=== PATIENT | female | born 1960 | race Caucasian/White ===

== ENCOUNTER → 2024-09-18 14:06 | Outpatient (BNVA) | payer MEDICAID, SELFPAY | PROVIDERS: Visit Provider Orthopaedic Surgery | DX: M54.50 Low back pain, unspecified (principal) | CPT/HCPCS: 36415; 72110; 80053; 81001; 85025 ==

== ENCOUNTER 2024-10-10 18:32 | Observation (INO) | payer MEDICAID, SELFPAY ==
[2024-10-10] VITALS (20 sets, daily range): BP systolic 111–156; BP diastolic 62–91; PULSE 78–119; RESP 10–35; TEMP 36.2–36.7; O2SAT 90–100; BMI 26.2
--- NOTE | 2024-10-10 | XR_ITS ---
WS: [id number] XR lumbar spine 2-3V* [id number] REASON FOR EXAM: FAISAL IMAGES FINDINGS: Posterior decompression with pedicle screws and interconnecting rods and interbody fusion device L4-L5. Surgical appliances are intact and in proper position and alignment. XR/XR lumbar spine 2-3V* [id number] IMPRESSION: Posterior lumbar fusion without abnormality.
[2024-10-10] MEDS: sodium chloride 0.9% 1,000 ML 30 ML IV (11:28)
--- NOTE | 2024-10-10 12:05 | ANES.PREANE2 ---
Pre-Anesthetic Assessment Height/Weight: Height 5 ft 2 in Weight 143 lb Temp Pulse Resp BP Pulse Ox O2 Del Method 97.6 F 78 16 156/91 96 Room Air 10/10/24 11:10 10/10/24 11:10 10/10/24 11:10 10/10/24 11:10 10/10/24 11:10 10/10/24 11:10 Preop Diagnosis: L4-5 spinal listhesis with lumbar stenosis and neurogenic claudication Operation Date: 10/10/24 12:40 Proposed Procedures p Spinal Fusion PSF(Not Applicable) - Odell Huertas DO s Posterior Lumbar Interbody Fusion PLIF(Not Applicable) - Odell Huertas DO Was Beta Mushtaq taken within 24 hours: N/A Was Clonidine taken within 24 hours: N/A Last intake: Intake Last Liquid Date 10/09/24 Last Liquid Time 21:30 Last Solid Date 10/09/24 Last Solid Time 21:30 Social No alcohol and No tobacco Exam alert, oriented x 3, clear to auscultation bilaterally and regular rate & rhythm Airway Submandibular: within normal limits Cervical ROM: within normal limits Mallampati: Class II Comments: Comments: Extremely poor dentition, most teeth are decaying/black. Denies any loose teeth Anesthetic Plan ASA status: 2 Anesthesia: General Other: Patient states that she almost and anesthesia a couple times because they gave her too much medication. States that she became blue in recovery. NPO since yesterday Labs 09/18/2024 reviewed and acceptable for procedure Patient denies any cardiac or pulmonary issues Patient does take chronic pain meds at baseline Plan for GETA Medications/Allergies Home Medications ?Medication ?Instructions ?Recorded ?Confirmed ?Last Taken ?Type gabapentin 300 mg capsule 300 mg PO TID 09/18/24 10/10/24 10/09/24 21:00 History hydrocodone 5 mg-acetaminophen 325 1 tab PO Q4H PRN Pain, Severe 09/18/24 10/10/24 10/09/24 21:00 History mg tablet Allergies Allergy/AdvReac Type Severity Reaction Status Date / Time diphenhydramine (From Allergy Intermediate ALGY-Difficulty Verified 10/10/24 11:10 Benadryl) Breathing shell fish Allergy Unknown Uncoded 10/10/24 11:10 Current Medications Generic Name Dose Route Start Last Admin Trade Name Freq PRN Reason Stop Dose Admin Sodium Chloride 1,000 mls @ 30 mls/hr 10/10/24 11:00 10/10/24 11:28 Sodium Chloride 0.9% IV 10/11/24 10:59 30 mls/hr .Q24H MITALI Administration PFSH Anesthesia Social History Smoking and tobacco/nicotine status: never used tobacco/nicotine Data Anesthesia Cardiac Studies: No Data to Display
--- NOTE | 2024-10-10 13:41 | W.PM.OPSUD ---
Surgery/Procedure H&P Update DATE OF PROCEDURE: October 10, 2024 DATE H&P PERFORMED: 09/28/24 H&P UPDATE INFORMATION: I have reviewed H&P completed within last 30 days, I have examined patient prior to procedure and No changes to prior documentation PREOP DIAGNOSIS: L4-5 spinal listhesis with lumbar stenosis and neurogenic claudication PLANNED PROCEDURE: Operation Date: 10/10/24 12:40 Proposed Procedures p Spinal Fusion PSF(Not Applicable) - Odell Huertas DO s Posterior Lumbar Interbody Fusion PLIF(Not Applicable) - Odell Huertas DO
[2024-10-10] MEDS: ceFAZolin 2,000 mg SDV 2000 MG IVP ×2 (14:02→20:24)
[2024-10-10] MEDS: heparin, porcine 1,000 unit/mL INJ 10 mL 6000 UNIT IRRIGATION (15:03)
[2024-10-10] MEDS: VANCOMYCIN ADD-Vantage 1,000 MG VIAL 1000 MG XX (15:03)
[2024-10-10] MEDS: lidocaine-epi 1% 20 mL INJ 10 ML INJECTION (15:04)
[2024-10-10] MEDS: fentaNYL 50 mcg/mL INJ 2mL IVP ×2 (17:20→17:26)
[2024-10-10] MEDS: acetaminophen 1,000 MG/100 ML PIGGYBACK 400 MG IV (17:33)
--- NOTE | 2024-10-10 17:34 | PM.OP ---
Operative Report Date of procedure: October 10, 2024 Pre-op diagnosis: L4-5 spondylolisthesis with lumbar stenosis and neurogenic claudication Post-op diagnosis: same Procedure done: 1. L4/5 Interbody fusion with posterolateral fusion 2. Instrumentation L4-L5 3. Insertion of Cage at L4/5 4. L4-5 laminectomy with facetectomies 5. use of autograft from same incision 6. allograft 7. Bone marrow aspirate from right iliac crest 8. Use of computer navigation/stereotactic for the spine Surgeon: Odell Huertas DO Estimated blood loss (mL): 400 Procedure: 1. L4/5 Interbody fusion with posterolateral fusion 2. Instrumentation L4-L5 3. Insertion of Cage at L4/5 4. L4-5 laminectomy with facetectomies 5. use of autograft from same incision 6. allograft 7. Bone marrow aspirate from right iliac crest 8. Use of computer navigation/stereotactic for the spine Patient is brought to the operative suite. After undergoing anesthesia, the patient had neuro monitoring attached. Patient was then placed in the prone position on the Erasmo table. All areas of impingement were well-padded. Patient was then prepped and draped in the normal sterile fashion. Skin incision was then made over the L4-L5 disc space. Subperiosteal dissection was made out to the transverse processes of L4 and L5. Next attention was brought to the Striiv bone marrow aspirate kit was used to aspirate bone marrow aspirate. This was done by using the sharp probe to open up the bone. Aspiration was performed and then the blunt probe was then used to dissect down to through the bone tunnel. An aspirating well drawn back a millimeter approximately 20 cc of bone marrow aspirate was used. Admixed with the allograft and autograft bone that will be used. Next attention was brought to placing the computer navigation fiducial. The pins were placed in the right iliac crest. These pins were later removed at the end of the case. The fiducial was then attached to this. The C-arm was then brought in and spun around the patient. The information of the C-arm was then loaded the computer and this was later used for the placement of the pedicle screws. Next attention was brought to placing the pedicle screws. The technique for placing the pedicle screws was to use a drill followed by the gearshift probe. Followed by the ball probe to feel the superior inferior medial lateral [place] of the pedicles. Then placement of the screws. Was done at each pedicle. Screws were placed at L4 bilaterally and L5. Next attention was brought to performing the laminectomy ofL4. This was done using the high-speed bur Kerrisons and curettes. Once the lamina was removed and then attention was brought to performing a partial facetectomy on the contralateral side. This was done again using the high-speed bur curettes and Kerrisons. The ligamentum flavum was taken down bilaterally from L4 to L5. Attention was then brought to the facet on the ipsilateral side. The facet was taken down. The L5 nerve was decompressed as it passed around the L5 pedicle. The laminectomy was done for purposes of decompressing the nerve as well as placement of the cage. The L4 nerve was identified as it traversed through the L4 foramen. The thecal sac was identified and retracted. The L4/5 disc base was identified. Using a knife the disc base was opened. And then sequential joni were placed. The first shaver was a 6 and the last shaver was a 7. Using a pituitary and down going curette the endplates were scraped and disc material was removed from the space. Once adequate decompression of the disc base was felt to be had. Osteoamp sponge was packed into the anterior aspect of the disc base. Then a size 8 cage from [place] was placed after packing osteoamp into the cage. While placing the cage the thecal sac and L5 nerve was protected. C arm was used to ensure that the cages placed in the appropriate position. Attention was then brought to attaching the rods to the screws placed in the L4 bilaterally and L5 bilaterally. Caps were torqued into position. Locking the construct in place. Wound was copiously irrigated and then attention was brought to decorticating the facets and transverse processes laterally. Bone that was taken down from the lamina was used along with osteoamp fibers and sponges were packed into the lateral gutters along the facet joints. This was done bilaterally. Wound was then closed in a layered fashion starting with the thoracolumbar fascia. 0-vicryl was used the sub cutaneous tissue was closed with 2-0 vicryl and skin with 4-0 monocryl. Glue was then used to seal the skin and a steril dressing was applied. Patient was then placed in the supine position. The endotracheal tube was removed and patient was transferred to the PACU in stable condition.
--- NOTE | 2024-10-10 18:55 | ANE.PACU2 ---
Inpatient post-anesthesia follow up: Airway intact: Yes Vital signs: Temperature 98 F Pulse Rate 76 Respiratory Rate 20 Blood Pressure 127/72 Pulse Oximetry 97 Oxygen Delivery Me thod Room Air Oxygen Flow Rate 2 Fraction of Inspir ed Oxygen Hydration adequate: Yes Nausea and vomiting: No Pain level: 2 Mental status: Baseline
[2024-10-10] MEDS: ketorolac 30 mg/mL INJ IVP (20:23)
[2024-10-10] MEDS: gabapentin 300 mg Capsule PO (20:24)
[2024-10-10] MEDS: morphine 4 mg/mL SDV 1 mL 2 MG IVP ×2 (21:04→23:52)
[2024-10-10] MEDS: HYDROcodone-acetaminophen 10-325 mg Tablet PO (21:50)
[2024-10-11] VITALS: BP 122/69; PULSE 111; RESP 18; TEMP 36.6; O2SAT 96
[2024-10-11 01:20] VITALS: RESP 18
[2024-10-11] MEDS: morphine 4 mg/mL SDV 1 mL 2 MG IVP (01:20)
[2024-10-11] MEDS: lactated ringers 1,000 ML 90 ML IV (01:21)
[2024-10-11 04:00] VITALS: BP 110/70; PULSE 91; RESP 16; TEMP 37.1; O2SAT 92
[2024-10-11] MEDS: ketorolac 30 mg/mL INJ IVP (05:27)
[2024-10-11] MEDS: ceFAZolin 2,000 mg SDV 2000 MG IVP (05:27)
[2024-10-11 07:37] VITALS: BP 105/64; PULSE 90; RESP 18; TEMP 36.7; O2SAT 95
[2024-10-11] MEDS: docusate sodium 100 mg Capsule PO ×2 (07:43→17:24)
[2024-10-11] MEDS: gabapentin 300 mg Capsule PO ×2 (07:43→17:24)
[2024-10-11] MEDS: HYDROcodone-acetaminophen 10-325 mg Tablet PO ×2 (07:51→17:23)
--- NOTE | 2024-10-11 10:26 | PC.CHAP ---
Pastoral Care Encounter/Spiritual Assessment Type of Contact [] Declined database specialist visit [] Patient/Family/Request visit [] Outpatient visit [] Follow-up visit [] Physician referral [] Code/Alert [x] Routine visit [] Staff referral [] Actively dying [] Patient sleeping [] Family support [] [] Out of room [] Palliative care [] [] Receiving care in room [] Pre-surgical visit [] Trauma [] Long length of stay [] ICU visit [] Other: Relational/Emotional Strength [x] Patient feels connected with others/family/visitors/staff [] Distress [] Loneliness/isolation [] Abandonment Spirituality of Patient [x] Person of [place]ric[place] [] Attends Catholic of their [place] [x] Believes in Prayer [] Reads Bible or Druze materials [] There are Spiritual issues to be addressed [employer] Interventions [x] Prayer [x] Active listening [] Non-anxious presence [x] Spiritual/emotional support [] Crisis/trauma care [] Spiritual counseling [] Bereavement support [] Provided bereavement packet [] Provided Bible/devotional materials [] Provided toy/stuffed animal, coloring book to patient or family member [] Provided Communion [] Anointing/[place] [] Salvation [x] Completed spiritual assessment [] Other: Impact on Illness or Injury [] Angry [] Fearful [] Anxious [] Often cries [] Exhaustion [] Unable to work [] Unable to attend adventism [] Unable to walk/stand [] Unable to read [] Unable to drive [] Unable to eat/drink [] Unable to sleep [] Unable to be with family [] Patient intubated [] Other: Summary Time spent with patient 5 min
[2024-10-11 11:31] VITALS: BP 127/72; PULSE 76; RESP 20; TEMP 36.6; O2SAT 97
--- NOTE | 2024-10-11 12:25 | PC.NURSE ---
Hemovac Drain removed from patients right lower back. Applied 2x2 and covederm. Replaced saturated dressing.
--- NOTE | 2024-10-11 13:31 | PM.DCS ---
Discharge Providers Date of Admission: 10/10/24 18:32 Date of Discharge: October 11, 2024 Attending Provider at Admission: Odell Huertas DO Attending Provider at Discharge: Odell Huertas DO Reason for Visit Reason for Visit: M43.16 Physical Exam Narrative: Patient doing well up ambulating when I walked in. Urinary Catheter Management: Blue: Cath Placed During This Visit: yes, but has since been removed by the nurse Reason for Continuing Indwelling Catheter: Decision to DC Catheter Urinary Catheter Date of Insertion: 10/10/24 Urinary Catheter Time of Insertion: 14:30 Date Urinary Catheter Removed: 10/11/24 Time Urinary Catheter Discontinued: 06:20 Discharge Data Studies Completed and Pending Completed Studies During Hospitalization Category Date Time Status XR lumbar spine 2-3V* [id number] Routine Exams 10/10/24 00:00 Completed Radiology Impressions Lumbar Spine X-Ray 10/10/24 00:00 IMPRESSION: Posterior lumbar fusion without abnormality. Laboratory Results Blood Type O Positive 10/10/24 11:18 Rho(D) Type Rh positive 10/10/24 11:18 Antibody Screen Negative 10/10/24 11:18 Vitals Last Vital Signs Temp 98 F 10/11/24 11:31 Pulse 76 10/11/24 11:31 Resp 20 H 10/11/24 11:31 BP 127/72 10/11/24 11:31 Pulse Ox 97 10/11/24 11:31 O2 Del Method Room Air 10/11/24 07:37 O2 Flow Rate 2 10/11/24 08:00 Discharge Plan Discharge Patient Disposition: Home Condition: Stable Prescriptions: New hydrocodone-acetaminophen 10-325 mg tablet 1 tab PO Q4H PRN (Reason: pain) 7 Days Qty: 42 0RF Continued gabapentin 300 mg capsule 300 mg PO TID Discontinued hydrocodone-acetaminophen 5-325 mg tablet 1 tab PO Q4H PRN (Reason: Pain, Severe) Referrals: Odell Huertas DO [Physician] - 10/23/24 2:15 pm Discharge Diet: Advance as tolerated Discharge Activity: Limit activity as instructed Patient Instructions: Acute Wound Care (DC), Opioid Safety, Post Anesthesia Care Activity Restrictions/Additional Instructions: Thank you for [facility] for your care! The following is a list of instructions, from your provider, to follow upon your discharge to ensure you have the optimal recovery from your recent injury orsurgery. Follow-up care is a soto part of your treatment and safety. Be sure to make and go to all appointments, and call your doctor if you are having problems. If you do not already have a follow-up appointment made, call Dr. Huertas office in the next 1-3 days to make follow up appointment for 1 weeks at [phone]. It is also a good idea to know your test results and keep a list of the medicines you take. Medications will be prescribed for you at your provider's discretion. These medications are to be used as instructed; if they are taken more often that prescribed they will not be refilled early and in most cases will not be refilled at all. > When a refill is needed,you should contact [facility] 2-3 business days before your prescription runs out. Medications will NOT be refilled by [facility] providers after hours! > Many pain medications contain Tylenol (Acetaminophen). Do not consume more than 4,000 mg of Tylenol per day in total with any combination ofmedications. > Pain medications can cause constipation. Please use an over the counter stool softener as directed, while taking pain medications. Consulty our local pharmacist with questions or recommendations on stool softeners. If constipation persists, contact our office or your primary care provider. > While under our care,you are not to receive pain medications or other controlled substances from any other provider unless our office is notified and approves. Any attempts to do so will result in refusal to prescribe any further pain medications and possible dismissal from our practice. ? Follow-up in 1 week we will change dressing clinic ? Showering is permitted, however we ask that you do not take a bath, sit in a whirlpool / Jacuzzi, or go swimming for 1 month. For only the first 2 days after surgery, lt wilt be necessary for you to cover your wound/dressing with plastic and tape to keep it dry. ? Walking is essential for the healing process after surgery. We would like you to slowly advance your walking. This should be done on relatively flat clear ground (inside or out) or can be done on a treadmill. Remember this goal does not have to happen all at once, slowly increase your distance and duration. This can be broken into more more than one walk per day as tolerated. Patients who walk as directed after surgery rarely require Physical Therapy. In the unlikely event this issue arises your provider will direct hospital staff to make the appropriate arrangements. ? No lifting over 5 pounds {a gallon of milk) or bending/twisting until further notice. Each of these activities places an unnecessary amount of stress onto the body and can impede the delicate healing process. > Instead of bending at the waist, keep your back straight and bend at the knees. > Instead of twisting your torso, keep your back straight and turn your entire body with your feet. ? You may sleep in any position which makes you comfortable. Many patients find comfort sleeping in a reclining chair. It is not abnormal to have difficulty sleeping for the first several weeks following your surgery. We recommend trying Benadry! or Tylenol PM as directed to help with your sleeping difficulties. Both medications are over the counter and available withoutprescription. ? NO SMOKING!!! Smoking dramatically increases the probability of developing postoperative wound infections. ? Common complaints after lumbar and/or thoracic spine surgery include, but are not limited to: numbness and/or tingling in the legs, pain around the incision and surrounding tissues, muscle spasms, or stiffness of the middle to low back. Contact our office if these symptoms persist or if an acute change occurs. ? No driving for the first 3-5days, and not while taking narcotics [] until seen at your follow-up appointment and cleared. There are no restrictions for riding on short trips, however if you take a longer trip, arrangements should be made to make regular stops to get out of the vehicle and stretch . ? Swelling is an unfortunate event that will take place with any surgery and is the primary source of your postoperative discomfort. While walking and regular approved activities helps control inflammation, there are additional steps you can take to minimizeswelling. > Place ice over the surgical site and surrounding tissue for twenty minutes, followed by applying a low/medium heat (heating pad) for an additional twenty minutes every 1-2 hours as needed for painrelief. > You may use of over the counter anti-inflammatory medications (Ibuprofen, Motrin, Aleve, Advil, etc) as directed on the package label. These types of medicines wm significantly reduce the amount of discomfort you experience after surgery from swelling. It should be noted that if you have and allergy to any of these medications, or a history of ulcers or kidney disease you should consult you primary care provider prior to starting these medications. Discharge Attestations Time Spent in Discharge Care*: less than 30 min Quality Metrics Clinical Quality Measures [ No reported AMI, CVA or VTE this stay] Coding Level of Care Code Acute Code for Chg Brad
[2024-10-11 19:22] VITALS: BP 127/72; PULSE 76; RESP 20; TEMP 36.7; O2SAT 97
== END 2024-10-11 19:23 | disposition home or self-care (01) ==
LOC: MEDSURG 18:33
PROVIDERS: Admitting Provider Orthopaedic Surgery; Visit Provider Orthopaedic Surgery
PROC: (CPT 22633; principal; 2024-10-10 12:20)
PROC: (CPT 22612; 2024-10-10 12:20)
DX: M43.16 Spondylolisthesis, lumbar region (principal); M48.062 Spinal stenosis, lumbar region with neurogenic claudication; Z79.899 Other long term (current) drug therapy; Z88.8 Allergy status to other drugs, medicaments and biological substances; Z91.013 Allergy to seafood
CPT/HCPCS: 22633; 22853; 20939; 20930; 20936; 36415; 51702; 72100; 76000; 86850; 86900; 97116; 97161; C1713; G0378; J0131; J0690; J1100; J1644; J1885; J2270; J2405; J2704; J3010; J3370; J3490; J7030; J7120

== ENCOUNTER 2024-10-15 22:51 | Emergency (ER) | payer MEDICAID, SELFPAY ==
[2024-10-15 22:59] VITALS: BP 133/80; PULSE 88; RESP 22; TEMP 36.9; O2SAT 100; BMI 26.9
--- NOTE | 2024-10-15 23:18 | XRR_ITS ---
PROCEDURE INFORMATION: Exam: XR Chest Exam date and time: 10/15/2024 11:58 PM Age: 64 years old Clinical indication: Cough and fever and tachypnea; Additional info: Fever tachypnea TECHNIQUE: Imaging protocol: Radiologic exam of the chest. Views: 1 view. COMPARISON: No relevant prior studies available. FINDINGS: Lungs: Unremarkable. No consolidation. Pleural spaces: Unremarkable. No pleural effusion. No pneumothorax. Heart/Mediastinum: Unremarkable. No cardiomegaly. Bones/joints: Unremarkable. XR/XR chest 1V portable [id number] IMPRESSION: No acute findings.
--- NOTE | 2024-10-15 23:20 | ED_ITS ---
HPI - Back Pain/Injury 2 General: Chief Complaint: Back Pain/Injury Stated Complaint: Post Surgery-Hallucination pain Time Seen by Provider: 10/15/24 23:11 History of Present Illness: Patient presents to the ER with complaints of back pain. She rates it a 10 out of 10. Patient had lumbar fusion done by Dr. Huertas on Tuesday. She was doing good for couple days taking the pain medicine as directed. Then the last couple days pain is increased and not responded to the medicine. They said today earlier she had a temperature of 100.9. Related Data Home Medications ?Medication ?Instructions ?Recorded ?Confirmed gabapentin 300 mg capsule 300 mg PO TID 09/18/2410/10 Previous Rx's ?Medication ?Instructions ?Recorded hydrocodone 10 mg-acetaminophen 1 tab PO Q4H PRN pain 7 days #42 10/11/24 325 mg tablet tabs oxycodone-acetaminophen 5 mg-325 1 tab PO Q6H PRN pain , severe #14 10/16/24 mg tablet (Percocet) tabs Allergies Allergy/AdvReac Type Severity Reaction Status Date / Time diphenhydramine (From Allergy Intermediate ALGY-Difficulty Verified 10/10/24 11:10 Benadryl) Breathing shell fish Allergy Unknown Uncoded 10/10/24 11:10 Review of Systems 2 General: Reports: 10 or more systems reviewed and unremarkable except in HPI and below PFSH ED 2 PFSH: Social History Smoking and tobacco/nicotine status: never used tobacco/nicotine Physical Exam 2 Const: COMMON NORMALS: no acute distress, average body habitus, patient oriented x3, no limitations, healthy appearing, alert and well nourished HENMT: COMMON NORMALS: normocephalic, atraumatic, hearing grossly normal bilaterally, external ears normal, Normal external nose present, moist oral mucous membranes and oropharynx normal HEAD & SCALP: normocephalic and atraumatic NOSE: Normal external nose present EXTERNAL EAR: Yes external ears normal Eye: COMMON NORMALS: Equal, round and reactive pupils present, EOMs intact bilaterally, conjunctivae normal and no scleral icterus CONJUNCTIVA: Yes conjunctivae normal PUPIL: Yes Equal, round and reactive pupils present Neck/C-Spine: COMMON NORMALS: no JVD Chest: COMMONS NORMALS: normal inspection of the chest and normal palpation of entire chest wall Resp: COMMON NORMALS: normal respiratory effort, No retractions, No use of accessory muscles and clear to auscultation bilaterally AUSCULTATION: clear to auscultation bilaterally Cardio: COMMON NORMALS: no JVD, regular rate, regular rhythm, S1 normal heart sound present, S2 normal heart sound present, No clicks present (Cardio), No murmurs present (Cardio) and No rub (Cardio) RATE: regular rate RHYTHM: r egular rhythm HEART SOUNDS: S1 normal heart sound present and S2 normal heart sound present Neuro: COMMON NORMALS: patient oriented x3 SENSORIUM/ORIENTATION: Yes alert Course 2 Vital Signs: Vital signs: Vital Signs Temperature 98.4 F 10/15/24 22:59 Pulse Rate 82 10/16/24 00:30 Respiratory Rate 20 H 10/15/24 23:44 Blood Pressure 111/63 10/16/24 00:30 Pulse Oximetry 98 10/16/24 00:30 Oxygen Delivery Me thod Room Air 10/16/24 00:30 MDM - Back Pain/Injury Medical Decision Making Lab work was obtained, white count 8.6, hemoglobin 8.5, chest x-ray no acute findings, lactic acid 2.3, AST 75 ALT 45 alk phos 166, urine negative, patient was given 4 mg of morphine 4 mg of Zofran in the ER. 2 Percocet to go home and a prescription for more Percocet. She was told to call Dr. Huertas's office first thing tomorrow morning and arrange closer follow-up. Patient declined to have a COVID flu and RSV swab performed in the ER. Medical Records I reviewed the patient's medical records. Labs I reviewed the patient's lab results. 10/15/24 23:36 10/15/24 23:36 Radiology Impressions Chest X-Ray 10/15/24 23:18 IMPRESSION: No acute findings. Laboratory Results WBC 8.62 10^3/uL (3.29-11.43) 10/15/24 23:36 RBC 2.83 10^6/uL (3.85-5.65) L 10/15/24 23:36 Hgb 8.50 g/dL (11.27-16.99) L 10/15/24 23:36 Hct 26.5 % (36-47) L 10/15/24 23:36 MCV 93.6 fl (85-98) 10/15/24 23:36 MCH 30.0 pg (27-33) 10/15/24 23:36 MCHC 32.1 g/dL (30-55) 10/15/24 23:36 RDW 12.2 % (12.1-15.1) 10/15/24 23:36 Plt Count 304 10^3/cmm (157-399) 10/15/24 23:36 MPV 9.4 fL (7.4-10.4) 10/15/24 23:36 Neut % (Auto) 67.8 % 10/15/24 23:36 Lymph % (Auto) 18.8 % 10/15/24 23:36 [place] % (Auto) 8.2 % 10/15/24 23:36 Eos % (Auto) 3.7 % 10/15/24 23:36 Baso % (Auto) 0.3 % 10/15/24 23:36 Neut # (Auto) 5.84 10^3/uL (1.8-7.7) 10/15/24 23:36 Lymph # (Auto) 1.6 10^3/uL (0.8-4.8) 10/15/24 23:36 [place] # (Auto) 0.7 10^3/uL (0.2-0.9) 10/15/24 23:36 Eos # (Auto) 0.3 10^3/uL (0.0-0.8) 10/15/24 23:36 Baso # (Auto) 0.0 10^3/uL (0.0-0.1) 10/15/24 23:36 Nucleated RBC % (auto) 0.2 % 10/15/24 23:36 Nucleated RBCs # 0.0 /100WBC 10/15/24 23:36 Sodium 137 mmol/L (136-145) 10/15/24 23:36 Potassium 3.9 mmol/L (3.5-5.1) 10/15/24 23:36 Chloride 99 mmol/L (98-107) 10/15/24 23:36 Carbon Dioxide 24 mmol/L (22-29) 10/15/24 23:36 Anion Gap 17.9 (5-19) 10/15/24 23:36 BUN 11 mg/dL (8-23) 10/15/24 23:36 Creatinine 0.9 mg/dL (0.5-0.9) 10/15/24 23:36 GFR Calculation 63.2 mL/min (90-130) L 10/15/24 23:36 Glucose 135 mg/dL (65-115) H 10/15/24 23:36 Calculated Osmolality 285 mOsm/kg (285-295) 10/15/24 23:36 Lactic Acid 2.3 mmol/L (0.5-2.2) H 10/15/24 23:36 Calcium 9.1 mg/dL (8.5-10.5) 10/15/24 23:36 Total Bilirubin 0.5 mg/dL (0.15-1.2) 10/15/24 23:36 AST 75 U/L (0-32) H 10/15/24 23:36 ALT 45 U/L (0-33) H 10/15/24 23:36 Alkaline Phosphatase 166 U/L (35-105) H 10/15/24 23:36 Total Protein 6.1 g/dL (6.6-8.7) L 10/15/24 23:36 Albumin 3.5 g/dL (3.5-5.2) 10/15/24 23:36 Globulin 2.6 g/dL (1.3-4.6) 10/15/24 23:36 Procalcitonin 0.11 ng/mL (0-0.5) 10/15/24 23:36 Urine Color Yellow (Yellow) 10/16/24 00:05 Urine Appearance Cloudy (CLEAR) A 10/16/24 00:05 Urine pH 8.0 (5-7) A 10/16/24 00:05 Ur Specific [place] 1.014 (1.005-1.030) 10/16/24 00:05 Urine Protein Negative (Negative) 10/16/24 00:05 Urine Glucose (UA) Negative (Normal) 10/16/24 00:05 Urine Ketones Negative (Negative) 10/16/24 00:05 Urine Blood Negative (Negative) 10/16/24 00:05 Urine Nitrate Negative (Negative) 10/16/24 00:05 Urine Bilirubin Negative (Negative) 10/16/24 00:05 Urine Urobilinogen 1.0 mg/dL (Negative) 10/16/24 00:05 Ur Leukocyte Esterase Negative (Negative) 10/16/24 00:05 Urine RBC 0-2 /hpf (0-2) 10/16/24 00:05 Urine WBC 0-5 /hpf (0-5) 10/16/24 00:05 Ur Squamous Epith Cells 0-5 /hpf (0-5) 10/16/24 00:05 Amorphous Sediment Not Reportable 10/16/24 00:05 Urine Bacteria None seen /hpf (NONE) 10/16/24 00:05 Hyaline Casts 1.21 /lpf 10/16/24 00:05 All radiology interpretation(s) finalized by discharge Discharge Plan Discharge Patient Disposition: Home Clinical Impression: Lumbar back pain, Anemia Condition: Stable Prescriptions: New oxycodone-acetaminophen [Percocet] 5-325 mg tablet 1 tab PO Q6H PRN (Reason: pain, severe) Qty: 14 0RF No Action gabapentin 300 mg capsule 300 mg PO TID hydrocodone-acetaminophen 10-325 mg tablet 1 tab PO Q4H PRN (Reason: pain) 7 Days Qty: 42 0RF Discharge Orders: Discharge ED (Routine); Ordered 10/16/24 Ordered By: Rafael Benites Patient Instructions: Opioid Safety, Pain Management, Anemia Activity Restrictions/Additional Instructions: Your lab work today in the ER showed you are anemic. This may be due from surgery or he may be losing blood. You have been prescribed Percocet to take for pain. Please pick them up at the pharmacy and take them as directed. Please call Dr. Huertas's office first thing in the morning to arrange closer follow-up. You declined to have the COVID flu and RSV swab performed in the ER so we cannot tell you if you have these or not. If you still keep having pain or concerns please follow-up with your family practice doctor within the next 7 days for further evaluation and treatment. Print Language: Tamazight Coding Level of Care Code ED Pumper Gager Apprentice for Ricki Salinas
[2024-10-15 23:29] VITALS: BP 138/68; PULSE 94; O2SAT 98
[2024-10-15 23:34] VITALS: PULSE 95; O2SAT 98
[2024-10-15 23:44] VITALS: RESP 20; O2SAT 100
[2024-10-15 23:44] LABS: Basophils % 0.3 %; Eosinophils # 0.3 10^3/uL (0.0-0.8); Eosinophils % 3.7 %; Hematocrit 26.5 % (36-47); Lymphocytes # 1.6 10^3/uL (0.8-4.8); Lymphocytes % 18.8 %; Mean Corpuscular HGB Conc 32.1 g/dL (30-55); Mean Corpuscular Volume 93.6 fl (85-98); Mean Platelet Volume 9.4 fL (7.4-10.4); Monocytes # 0.7 10^3/uL (0.2-0.9); Monocytes % 8.2 %; Neutrophils # 5.84 10^3/uL (1.8-7.7); Neutrophils % 67.8 %; Nucleated Red Blood Cells % 0.2 %; Platelet Count 304 10^3/cmm (157-399); Red Blood Count 2.83 10^6/uL (3.85-5.65); Red Cell Distribution Width 12.2 % (12.1-15.1); White Blood Count 8.62 10^3/uL (3.29-11.43)
[2024-10-15] MEDS: morphine 4 mg/mL SDV 1 mL IVP (23:44)
[2024-10-15] MEDS: ondansetron 2 mg/ML SDV 2 mL 4 MG IVP (23:45)
[2024-10-16 00:03] LABS: Alanine Aminotransferase 45 U/L (0-33); Albumin Level 3.5 g/dL (3.5-5.2); Alkaline Phosphatase 166 U/L (35-105); Anion Gap 17.9 (5-19); Aspartate Amino Transferase 75 U/L (0-32); Blood Urea Nitrogen 11 mg/dL (8-23); Calcium 9.1 mg/dL (8.5-10.5); Carbon Dioxide 24 mmol/L (22-29); Chloride 99 mmol/L (98-107); Creatinine Clr Calc Pharmacy 57.3003; Globulin 2.6 g/dL (1.3-4.6); Glomerular Filtration Rate 63.2 mL/min (90-130); Glucose 135 mg/dL (65-115); Osmolality Calculated 285 mOsm/kg (285-295); Potassium 3.9 mmol/L (3.5-5.1); Sodium 137 mmol/L (136-145); Total Bilirubin 0.5 mg/dL (0.15-1.2); Total Protein 6.1 g/dL (6.6-8.7)
[2024-10-16 00:04] VITALS: BP 98/78; PULSE 89; O2SAT 95
[2024-10-16 00:04] LABS: Lactic Sepsis W/Reflex 2.3 mmol/L (0.5-2.2)
[2024-10-16 00:10] LABS: Procalcitonin 0.11 ng/mL (0-0.5)
[2024-10-16 00:12] LABS: Bilirubin Urine Negative (Negative); Blood Urine Negative (Negative); Glucose Urine UA Negative (Normal); Ketones Urine Negative (Negative); Leukocyte Esterase Urine Negative (Negative); Nitrate Urine Negative (Negative); Protein Urine Negative (Negative); Specific Gravity, Urine 1.014 (1.005-1.030); Urine Appearance Cloudy (CLEAR); Urine Color Yellow (Yellow)
[2024-10-16 00:14] LABS: Add Urine Microscopic? YES; Bacteria Urine None Seen /hpf; Hyaline Casts Urine 1.21 /lpf; RBC Urine 0-2 /hpf (0-2); Squamous Epithelial Cell Urine 0-5 /hpf (0-5); WBC Urine 0-5 /hpf (0-5)
[2024-10-16 00:30] VITALS: BP 111/63; PULSE 82; O2SAT 98
[2024-10-16 01:00] VITALS: BP 104/54; PULSE 75; O2SAT 96
[2024-10-16 01:29] LABS: Reflex Lactate Order REFLEX LACTIC ORDERD
[2024-10-16 01:30] VITALS: PULSE 70; O2SAT 97
[2024-10-16] MEDS: oxyCODONE-APAP 5-325 mg Tablet PO (01:40)
[2024-10-16 01:55] VITALS: BP 104/52; PULSE 70; O2SAT 97
== END 2024-10-16 01:57 | disposition home or self-care (01) ==
PROVIDERS: Emergency Provider Emergency Medicine
DX: M54.50 Low back pain, unspecified (principal); D64.9 Anemia, unspecified
CPT/HCPCS: 36415; 71045; 80053; 81001; 83605; 84145; 85025; 96374; 96375; 99284; J2270; J2405

== ENCOUNTER 2024-10-18 22:37 | Observation (INO) | payer MEDICAID, SELFPAY ==
[2024-10-18 22:49] VITALS: BP 141/80; PULSE 77; RESP 20; TEMP 36.6; O2SAT 99; BMI 26.2
--- NOTE | 2024-10-18 22:53 | W.ED.GENADLT ---
Documented by User: Rafael Benites DO 10/19/24 05:00 HPI - General Adult General: Chief complaint: Back Pain/Injury Stated complaint: BACK PAIN Time Seen by Provider: 10/18/24 22:47 History of Present Illness: Patient brought in by EMS from [facility] as a ER to ER transfer, we were notified by Dr. Trinity Jenkins the ER, we were told patient has some postop complication such as hemorrhaging around the surgical site on imaging. Dr. Huertas has also been notified by [facility] ER as he was officially the one that acceptged the ER to ER transfe first, patient has had imaging through [facility], pt did bring the disk. We will hold the patient in the ER until Dr. Huertas sees the imaging in the morning and tells us how to proceed, currently we will control patient's pain keep the patient n.p.o. after midnight for possible surgery in the morning until told otherwise. Related Data Home Medications ?Medication ?Instructions ?Recorded ?Confirmed gabapentin 300 mg capsule 300 mg PO TID 09/18/24 10/19/24 hydrocodone 10 mg-acetaminophen 1 tab PO Q4H 10/19/24 10/19/24 325 mg tablet hydrocodone 5 mg-acetaminophen 325 0.5 - 1 tab PO .Q4-6H 10/19/24 10/19/24 mg tablet Allergies Allergy/AdvReac Type Severity Reaction Status Date / Time diphenhydramine (From Allergy Intermediate ALGY-Difficulty Verified 10/10/24 11:10 Benadryl) Breathing shell fish Allergy Unknown Uncoded 10/10/24 11:10 Review of Systems General: Reports: 10 or more systems reviewed and unremarkable except in HPI and below PFSH ED PFSH: Social History Smoking and tobacco/nicotine status: never used tobacco/nicotine Physical Exam Const: COMMON NORMALS: no acute distress, average body habitus, patient oriented x3, no limitations, healthy appearing, alert and well nourished HENMT: COMMON NORMALS: normocephalic, atraumatic, hearing grossly normal bilaterally, external ears normal, Normal external nose present, moist oral mucous membranes and oropharynx normal HEAD & SCALP: normocephalic and atraumatic NOSE: Normal external nose present EXTERNAL EAR: Yes external ears normal Neck/C-Spine: COMMON NORMALS: no JVD Chest: COMMONS NORMALS: normal inspection of the chest and normal palpation of entire chest wall Resp: COMMON NORMALS: normal respiratory effort, No retractions, No use of accessory muscles and clear to auscultation bilaterally AUSCULTATION: clear to auscultation bilaterally Cardio: COMMON NORMALS: no JVD, regular rate, regular rhythm, S1 normal heart sound present, S2 normal heart sound present, No gallops present (Cardio), No clicks present (Cardio), No murmurs present (Cardio) and No rub (Cardio) RATE: regular rate RHYTHM: regular rhythm HEART SOUNDS: S1 normal heart sound present and S2 normal heart sound present GI: COMMON NORMALS: Normal to inspection, nondistended, normoactive bowel sounds present, Soft to palpation, non-tender, No hepatosplenomegaly present and no masses PALPATION: Yes Soft to palpation and Yes No hepatosplenomegaly present Neuro: COMMON NORMALS: patient oriented x3 SENSORIUM/ORIENTATION: Yes alert Course Vital Signs: Vital signs: Vital Signs Temperature 97.7 F 10/19/24 13:15 Pulse Rate 78 10/19/24 15:54 Respiratory Rate 14 10/19/24 14:14 Blood Pressure 108/70 10/19/24 15:54 Pulse Oximetry 94 10/19/24 15:54 Oxygen Delivery Me thod Room Air 10/19/24 15:54 Oxygen Flow Rate 2 10/19/24 14:14 [facility] - General Adult Medical Records I reviewed the patient's medical records. Lab Data I reviewed the patient's lab results. 10/19/24 07:51 10/19/24 06:37 Laboratory Results WBC 6.79 10^3/uL (3.29-11.43) 10/19/24 07:51 Corrected WBC Cancelled 10/19/24 06:37 RBC 3.07 10^6/uL (3.85-5.65) L 10/19/24 07:51 Hgb 9.10 g/dL (11.27-16.99) L 10/19/24 07:51 Hct 29.0 % (36-47) L 10/19/24 07:51 MCV 94.5 fl (85-98) 10/19/24 07:51 MCH 29.6 pg (27-33) 10/19/24 07:51 MCHC 31.4 g/dL (30-55) 10/19/24 07:51 RDW 12.4 % (12.1-15.1) 10/19/24 07:51 Plt Count 389 10^3/cmm (157-399) 10/19/24 07:51 MPV 9.0 fL (7.4-10.4) 10/19/24 07:51 Gran % Cancelled 10/19/24 06:37 Neut % (Auto) 56.7 % 10/19/24 07:51 Lymph % (Auto) 21.4 % 10/19/24 07:51 [place] % (Auto) 11.2 % 10/19/24 07:51 Eos % (Auto) 6.0 % 10/19/24 07:51 Baso % (Auto) 0.6 % 10/19/24 07:51 Neut # (Auto) 3.85 10^3/uL (1.8-7.7) 10/19/24 07:51 Lymph # (Auto) 1.5 10^3/uL (0.8-4.8) 10/19/24 07:51 [place] # (Auto) 0.8 10^3/uL (0.2-0.9) 10/19/24 07:51 Eos # (Auto) 0.4 10^3/uL (0.0-0.8) 10/19/24 07:51 Baso # (Auto) 0.0 10^3/uL (0.0-0.1) 10/19/24 07:51 Absolute Gran (auto) Cancelled 10/19/24 06:37 Nucleated RBC % (auto) 0.3 % 10/19/24 07:51 Nucleated RBCs # 0.0 /100WBC 10/19/24 07:51 Sodium 136 mmol/L (136-145) 10/19/24 06:37 Potassium 4.2 mmol/L (3.5-5.1) 10/19/24 06:37 Chloride 99 mmol/L (98-107) 10/19/24 06:37 Carbon Dioxide 22 mmol/L (22-29) 10/19/24 06:37 Anion Gap 19.2 (5-19) H 10/19/24 06:37 BUN 13 mg/dL (8-23) 10/19/24 06:37 Creatinine 0.8 mg/dL (0.5-0.9) 10/19/24 06:37 GFR Calculation 72.4 mL/min (90-130) L 10/19/24 06:37 Glucose 107 mg/dL (65-115) 10/19/24 06:37 Calculated Osmolality 283 mOsm/kg (285-295) L 10/19/24 06:37 Calcium 9.4 mg/dL (8.5-10.5) 10/19/24 06:37 Total Bilirubin 0.5 mg/dL (0.15-1.2) 10/19/24 06:37 AST 31 U/L (0-32) 10/19/24 06:37 ALT 26 U/L (0-33) 10/19/24 06:37 Alkaline Phosphatase 185 U/L (35-105) H 10/19/24 06:37 Total Protein 6.7 g/dL (6.6-8.7) 10/19/24 06:37 Albumin 3.5 g/dL (3.5-5.2) 10/19/24 06:37 Globulin 3.2 g/dL (1.3-4.6) 10/19/24 06:37 All radiology interpretation(s) finalized by discharge Discharge Plan Discharge Patient Disposition: Placed in Observation Admit Provider: Odell Huertas Clinical Impression: Status post lumbar spinal fusion, Spondylolisthesis at L4-L5 level, Postoperative hematoma Sign Out Sign Out Data: Patient Sign Out occurred on 10/19/24 at 05:53. Patient's care was discussed, and care was transferred from Rafael Benites DO to Cali Munguia DO. Coding Level of Care Code ED Retail Greeting Card Merchandiser for Chg Fwd Documented by User: Cali Munguia DO 10/19/24 16:38 HPI - General Adult General: Chief complaint: Back Pain/Injury Stated complaint: BACK PAIN Time Seen by Provider: 10/18/24 22:47 Related Data Home Medications ?Medication ?Instructions ?Recorded ?Confirmed gabapentin 300 mg capsule 300 mg PO TID 09/18/24 10/19/24 hydrocodone 10 mg-acetaminophen 1 tab PO Q4H 10/19/24 10/19/24 325 mg tablet hydrocodone 5 mg-acetaminophen 325 0.5 - 1 tab PO .Q4-6H 10/19/24 10/19/24 mg tablet Allergies Allergy/AdvReac Type Severity Reaction Status Date / Time diphenhydramine (From Allergy Intermediate ALGY-Difficulty Verified 10/10/24 11:10 Benadryl) Breathing shell fish Allergy Unknown Uncoded 10/10/24 11:10 [facility] ED PFSH: Social History Smoking and tobacco/nicotine status: never used tobacco/nicotine Course Vital Signs: Vital signs: Vital Signs Temperature 97.7 F 10/19/24 13:15 Pulse Rate 78 10/19/24 15:54 Respiratory Rate 14 10/19/24 14:14 Blood Pressure 108/70 10/19/24 15:54 Pulse Oximetry 94 10/19/24 15:54 Oxygen Delivery Me thod Room Air 10/19/24 15:54 Oxygen Flow Rate 2 10/19/24 14:14 MDM - General Adult Medical Decision Making 10/19/2024 7 AM Assumed care at change of shift. CBC CMP and EKG ordered. We contacted Dr. Huertas placed order for consult. Dr. Huertas has been to the department has seen the patient and reviewed the MRI. He informed me he is planning on taking patient to the OR for washout for hematoma noted on the MRI. Discussed with Dr. Huertas he will admit the patient. Patient went directly to the OR for from the ER. Lab Data 10/19/24 07:51 10/19/24 06:37 Laboratory Results WBC 6.79 10^3/uL (3.29-11.43) 10/19/24 07:51 Corrected WBC Cancelled 10/19/24 06:37 RBC 3.07 10^6/uL (3.85-5.65) L 10/19/24 07:51 Hgb 9.10 g/dL (11.27-16.99) L 10/19/24 07:51 Hct 29.0 % (36-47) L 10/19/24 07:51 MCV 94.5 fl (85-98) 10/19/24 07:51 MCH 29.6 pg (27-33) 10/19/24 07:51 MCHC 31.4 g/dL (30-55) 10/19/24 07:51 RDW 12.4 % (12.1-15.1) 10/19/24 07:51 Plt Count 389 10^3/cmm (157-399) 10/19/24 07:51 MPV 9.0 fL (7.4-10.4) 10/19/24 07:51 Gran % Cancelled 10/19/24 06:37 Neut % (Auto) 56.7 % 10/19/24 07:51 Lymph % (Auto) 21.4 % 10/19/24 07:51 [place] % (Auto) 11.2 % 10/19/24 07:51 Eos % (Auto) 6.0 % 10/19/24 07:51 Baso % (Auto) 0.6 % 10/19/24 07:51 Neut # (Auto) 3.85 10^3/uL (1.8-7.7) 10/19/24 07:51 Lymph # (Auto) 1.5 10^3/uL (0.8-4.8) 10/19/24 07:51 [place] # (Auto) 0.8 10^3/uL (0.2-0.9) 10/19/24 07:51 Eos # (Auto) 0.4 10^3/uL (0.0-0.8) 10/19/24 07:51 Baso # (Auto) 0.0 10^3/uL (0.0-0.1) 10/19/24 07:51 Absolute Gran (auto) Cancelled 10/19/24 06:37 Nucleated RBC % (auto) 0.3 % 10/19/24 07:51 Nucleated RBCs # 0.0 /100WBC 10/19/24 07:51 Sodium 136 mmol/L (136-145) 10/19/24 06:37 Potassium 4.2 mmol/L (3.5-5.1) 10/19/24 06:37 Chloride 99 mmol/L (98-107) 10/19/24 06:37 Carbon Dioxide 22 mmol/L (22-29) 10/19/24 06:37 Anion Gap 19.2 (5-19) H 10/19/24 06:37 BUN 13 mg/dL (8-23) 10/19/24 06:37 Creatinine 0.8 mg/dL (0.5-0.9) 10/19/24 06:37 GFR Calculation 72.4 mL/min (90-130) L 10/19/24 06:37 Glucose 107 mg/dL (65-115) 10/19/24 06:37 Calculated Osmolality 283 mOsm/kg (285-295) L 10/19/24 06:37 Calcium 9.4 mg/dL (8.5-10.5) 10/19/24 06:37 Total Bilirubin 0.5 mg/dL (0.15-1.2) 10/19/24 06:37 AST 31 U/L (0-32) 10/19/24 06:37 ALT 26 U/L (0-33) 10/19/24 06:37 Alkaline Phosphatase 185 U/L (35-105) H 10/19/24 06:37 Total Protein 6.7 g/dL (6.6-8.7) 10/19/24 06:37 Albumin 3.5 g/dL (3.5-5.2) 10/19/24 06:37 Globulin 3.2 g/dL (1.3-4.6) 10/19/24 06:37 Discharge Plan Discharge Patient Disposition: Placed in Observation Admit Provider: Odell Huertas Clinical Impression: Status post lumbar spinal fusion, Spondylolisthesis at L4-L5 level, Postoperative hematoma Sign Out Sign Out Data: Patient Sign Out occurred on 10/19/24 at 05:53. Patient's care was discussed, and care was transferred from Rafael Benites DO to Cali Munguia DO. Coding Level of Care Code ED Retail Greeting Card Merchandiser for Ricki Salinas
[2024-10-18] MEDS: HYDROMORPHONE HCL 0.5 MG/0.5 ML INJ IVP (23:57)
[2024-10-19] VITALS (41 sets, daily range): BP systolic 106–158; BP diastolic 59–101; PULSE 66–105; RESP 11–20; TEMP 36.1–36.7; O2SAT 89–100; BMI 26.2
[2024-10-19] MEDS: HYDROMORPHONE HCL 0.5 MG/0.5 ML INJ IVP ×3 (02:26→07:52)
--- NOTE | 2024-10-19 07:03 | P.HP_ITS ---
Providers/Chief Complaint 2 Chief Complaint: BACK PAIN History of Present Illness * Kurtis Matute is a 64 year old female had surgery on 10/10/2024 patient has increasing pain in her back pain rating down her right leg. MRI was done at [facility] which shows a hematoma. This point my plan is to take her to surgery to evacuate hematoma. Review of Systems 2 General: Reports: 10 or more systems reviewed and unremarkable except in HPI and below Const: Denies: fever(s), chills or body aches Eyes: Denies: change in vision Card: Denies: chest pain, dyspnea on exertion or orthopnea Resp: Denies: dyspnea, productive cough or wheezing GI: Denies: abdominal pain, nausea or vomiting Musc: Reports: back pain; Denies: neck pain, extremity pain, joint pain, joint swelling or limited range of motion Skin/Breast: Denies: changes in skin color or dry skin Neuro: Denies: numbness in extremities or weakness in extremities Psych: Denies: anxiety or depression [place]/Lymph: Denies: easy bruising or easy bleeding Medications/Allergies Home Medications ?Medication ?Instructions ?Recorded ?Confirmed ?Last Taken ?Type gabapentin 300 mg capsule 300 mg PO TID 09/18/2410/1010/09/24 21:00 History oxycodone-acetaminophen 5 mg-325 1 tab PO Q6H PRN pain , severe #14 10/16/24 Unknown Rx mg tablet (Percocet) tabs Bone Growth Stimulator #1 ea 10/18/24 Unknown Rx Allergies Allergy/AdvReac Type Severity Reaction Status Date / Time diphenhydramine (From Allergy Intermediate ALGY-Difficulty Verified 10/10/24 11:10 Benadryl) Breathing shell fish Allergy Unknown Uncoded 10/10/24 11:10 PFSH Acute 2 PFSH: Social History Smoking and tobacco/nicotine status: never used tobacco/nicotine Vitals/I&O/Wt Last Vital Signs Temp 98 F 10/18/24 22:49 Pulse 76 10/19/24 06:30 Resp 16 10/19/24 06:30 BP 121/65 10/19/24 06:00 Pulse Ox 95 10/19/24 06:30 O2 Del Method Room Air 10/19/24 06:30 10/18/24 10/19/24 10/19/24 22:59 06:59 14:59 Intake Total 0 / 0 Balance 0 / 0 Weight last 48 hrs Weight 143 lb Physical Exam 2 Narrative: Alert and oriented x 3 Head is normocephalic atraumatic Respirations are intact No evidence of any rashes or infection 5/5 strength in bilateral upper and lowe r extremities Sensation intact in all extremities Deep tendon reflexes 2 out of 4 bilateral upper and lower extremities Data 10/19/24 06:37 10/19/24 06:37 A&P Assessment and plan (1) Status post lumbar spinal fusion: Patient has considerable pain at this point plan will be to take her to the OR for hematoma evacuation. I had an open and honest discussion with the patient about the risks, benefits and alternatives to both surgical and nonsurgical treatment. The patient verbalized understanding of the inherent unpredictability associated with surgery. Risk of surgery were discussed including, but not limited to, infection, bleeding, temporary and permanent nerve damage, continued pain, stiffness, incomplete healing, need for revision surgery, blood clot and other complications. The patient verbalized understanding that there is spine is elective in nature and if they find any of these risks to be unacceptable then they should choose not to have the surgery. The patient verbalized understanding of these risks and elected to proceed with the surgery. PDMP PDMP Reviewed: Not Reviewed Attestations 2 Medical Necessity Statement*: Pain control Coding Level of Care Code Acute Code for Chg Fwd Diagnoses Status post lumbar spinal fusion Z98.1
[2024-10-19 07:04] LABS: Alanine Aminotransferase 26 U/L (0-33); Albumin Level 3.5 g/dL (3.5-5.2); Alkaline Phosphatase 185 U/L (35-105); Anion Gap 19.2 (5-19); Aspartate Amino Transferase 31 U/L (0-32); Blood Urea Nitrogen 13 mg/dL (8-23); Calcium 9.4 mg/dL (8.5-10.5); Carbon Dioxide 22 mmol/L (22-29); Chloride 99 mmol/L (98-107); Creatinine Clr Calc Pharmacy 63.6383; Globulin 3.2 g/dL (1.3-4.6); Glomerular Filtration Rate 72.4 mL/min (90-130); Glucose 107 mg/dL (65-115); Osmolality Calculated 283 mOsm/kg (285-295); Potassium 4.2 mmol/L (3.5-5.1); Sodium 136 mmol/L (136-145); Total Bilirubin 0.5 mg/dL (0.15-1.2); Total Protein 6.7 g/dL (6.6-8.7)
--- NOTE | 2024-10-19 07:15 | ECG_ITS ---
[facility] Test Date: 2024-10-19 Pat Name: Kurtis Matute Department: Room: Gender: Female Special Technical Operations Officer: : 1960 Requested By: Cali Venegas Order Number: [id number] Reading MD: ODALIS ALAN Measurements Intervals [place] Rate: 79 P: 37 IA: 155 QRS: 5 QRSD: 89 T: 17 QT: 354 QTc: 406 Interpretive Statements SINUS RHYTHM WITH OCCASIONAL SUPRAVENTRICULAR PREMATURE COMPLEXES No previous ECG available for comparison Electronically Signed On 10-23-2024 23:44:42 DITCH DIGGER by ODALIS ALAN [email or web address]
[2024-10-19 08:01] LABS: Basophils % 0.6 %; Eosinophils # 0.4 10^3/uL (0.0-0.8); Lymphocytes # 1.5 10^3/uL (0.8-4.8); Lymphocytes % 21.4 %; Mean Corpuscular HGB Conc 31.4 g/dL (30-55); Mean Corpuscular Hemoglobin 29.6 pg (27-33); Mean Corpuscular Volume 94.5 fl (85-98); Monocytes # 0.8 10^3/uL (0.2-0.9); Monocytes % 11.2 %; Neutrophils # 3.85 10^3/uL (1.8-7.7); Neutrophils % 56.7 %; Nucleated Red Blood Cells % 0.3 %; Platelet Count 389 10^3/cmm (157-399); Red Blood Count 3.07 10^6/uL (3.85-5.65); Red Cell Distribution Width 12.4 % (12.1-15.1); White Blood Count 6.79 10^3/uL (3.29-11.43)
[2024-10-19] MEDS: sodium chloride 0.9% 1,000 ML 30 ML IV (09:03)
--- NOTE | 2024-10-19 09:19 | P.ANESUD_ITS ---
Pre-Anesthetic Update Pre-Anesthetic Assessment: Date of Surgery/Procedure: 10/19/24 Preop Michelle gnosis: Hematoma lumbar spine Proposed Procedure: Operation Date: 10/19/24 10:20 Proposed Procedures p Hematoma Evacuation(Not Applicable) - Odell Huertas, DO Any changes to Pre-Anesthetic Assessment?: Yes Changes from Pre- Anesthetic Assessment: S/p surgical intervention w/ resultant hematoma Last Intake: > 8 hrs Labs Last 48hrs: Short CBC 10/19/24 10/19/24 Range/Units 06:37 07:51 WBC Cancelled 6.79 Hgb Cancelled 9.10 L Hct Cancelled 29.0 L MCV Cancelled 94.5 Plt Count Cancelled 389 Neut % (Auto) Cancelled 56.7 Neut # (Auto) Cancelled 3.85 BMP 10/19/24 06:37 Sodium 136 Potassium 4.2 Chloride 99 Carbon Dioxide 22 BUN 13 Creatinine 0.8 Glucose 107 Calcium 9.4 Liver Function 10/19/24 Range/Units 06:37 Total Bilirubin 0.5 (0.15-1.2) mg/dL AST 31 (0-32) U/L ALT 26 (0-33) U/L Alkaline Phosphata se 185 H (35-105) U/L Albumin 3.5 (3.5-5.2) g/dL Vitals: Temperature 97.3 F L 10/19/24 08:42 Temperature Source Temporal Artery S can 10/19/24 08:42 Pulse Rate 68 10/19/24 08:42 Respiratory Rate 18 10/19/24 08:42 Blood Pressure 124/70 10/19/24 08:42 Blood Pressure Niesha n 88 10/19/24 08:42 Pulse Oximetry 95 10/19/24 08:42 Oxygen Delivery Me thod Room Air 10/19/24 08:42 Sepsis Recent Feve r Within 48 Hours No 10/18/24 22:49 Exam: Pre-Anes Outpt Exam: alert, oriented x 3, clear to auscultation bilaterally and regular rate & rhythm Cardiac Studies: No Data to Display
[2024-10-19] MEDS: ceFAZolin 2,000 mg SDV 2000 MG IVP ×2 (10:15→18:12)
[2024-10-19] MEDS: lidocaine-epi 1% 20 mL INJ INJECTION (10:59)
--- NOTE | 2024-10-19 11:27 | PM.OP ---
Operative Report Date of procedure: October 19, 2024 Pre-op diagnosis: Postop hematoma lumbar spine Post-op diagnosis: same Procedure done: Evacuation of hematoma of lumbar spine Surgeon: Odell Huertas DO Estimated blood loss (mL): 50 Procedure: Evacuation hematoma lumbar spine Patient brought the op suite after undergoing anesthesia was placed in the prone position. All areas impingement well-padded. Patient's prepped draped normal sterile fashion. Skin incisions made using previous skin incision. Sutures are removed there is a large hematoma that was present. After cutting through the thoracolumbar fascia. Wound was irrigated with saline until the hematoma was completely evacuated. There is minimal bleeding. Drain in then the wound was closed with layered fashion with 0 Vicryl 2-0 Vicryl and Monocryl suture. Sterile dressings were applied patient transferred to the PACU in stable condition.
[2024-10-19] MEDS: fentaNYL 50 mcg/mL INJ 2mL IVP ×2 (11:32→11:44)
[2024-10-19] MEDS: HYDROmorphone 1 mg/mL INJ 1 mL 0.5 MG IVP ×2 (12:05→12:32)
[2024-10-19] MEDS: acetaminophen 1,000 MG/100 ML PIGGYBACK 400 MG IV (12:43)
--- NOTE | 2024-10-19 13:15 | ANE.PACU2 ---
Inpatient post-anesthesia follow up: Airway intact: Yes Vital signs: Temperature 97 F Pulse Rate 67 Respiratory Rate 13 Blood Pressure 114/64 Pulse Oximetry 96 Oxygen Delivery Me thod Nasal Cannula Oxygen Flow Rate 2 Fraction of Inspir ed Oxygen Hydration adequate: Yes Nausea and vomiting: No Pain level: 1 Mental status: Baseline
[2024-10-19] MEDS: ketorolac 30 mg/mL INJ IVP (14:10)
[2024-10-19] MEDS: gabapentin 300 mg Capsule PO ×2 (14:10→20:28)
[2024-10-19] MEDS: HYDROcodone-acetaminophen 10-325 mg Tablet 1 TAB PO ×3 (14:10→21:58)
[2024-10-20] VITALS: BP 135/76; PULSE 84; RESP 18; TEMP 36.4; O2SAT 94
[2024-10-20] MEDS: HYDROcodone-acetaminophen 10-325 mg Tablet 1 TAB PO ×4 (01:39→15:07)
[2024-10-20] MEDS: ceFAZolin 2,000 mg SDV 2000 MG IVP ×2 (01:40→08:30)
[2024-10-20 03:54] VITALS: BP 120/71; PULSE 63; RESP 16; TEMP 36.7; O2SAT 93
[2024-10-20 05:24] VITALS: BMI 28.2
[2024-10-20 08:00] VITALS: BP 125/62; PULSE 81; RESP 14; TEMP 36.4; O2SAT 97
[2024-10-20] MEDS: gabapentin 300 mg Capsule PO ×2 (08:30→15:08)
[2024-10-20 12:00] VITALS: BP 122/73; PULSE 85; RESP 14; TEMP 36.4; O2SAT 97
--- NOTE | 2024-10-20 13:33 | P.DS_ITS ---
Discharge Providers Date of Admission: 10/19/24 11:39 Date of Discharge: October 20, 2024 Attending Provider at Admission: Odell Huertas DO Attending Provider at Discharge: Odell Huertas DO Diagnoses at Discharge Discharge Diagnosis (1) Status post lumbar spinal fusion: Status: Acute Reason for Visit Reason for Visit: BACK PAIN Physical Exam Narrative: Patient's pain is better controlled left leg pain right leg pain are significant proved. Discharge Data Studies Completed and Pending Laboratory Results WBC 6.79 10^3/uL (3.29-11.43) 10/19/24 07:51 Corrected WBC Cancelled 10/19/24 06:37 RBC 3.07 10^6/uL (3.85-5.65) L 10/19/24 07:51 Hgb 9.10 g/dL (11.27-16.99) L 10/19/24 07:51 Hct 29.0 % (36-47) L 10/19/24 07:51 MCV 94.5 fl (85-98) 10/19/24 07:51 MCH 29.6 pg (27-33) 10/19/24 07:51 MCHC 31.4 g/dL (30-55) 10/19/24 07:51 RDW 12.4 % (12.1-15.1) 10/19/24 07:51 Plt Count 389 10^3/cmm (157-399) 10/19/24 07:51 MPV 9.0 fL (7.4-10.4) 10/19/24 07:51 Gran % Cancelled 10/19/24 06:37 Neut % (Auto) 56.7 % 10/19/24 07:51 Lymph % (Auto) 21.4 % 10/19/24 07:51 Toole % (Auto) 11.2 % 10/19/24 07:51 Eos % (Auto) 6.0 % 10/19/24 07:51 Baso % (Auto) 0.6 % 10/19/24 07:51 Neut # (Auto) 3.85 10^3/uL (1.8-7.7) 10/19/24 07:51 Lymph # (Auto) 1.5 10^3/uL (0.8-4.8) 10/19/24 07:51 Toole # (Auto) 0.8 10^3/uL (0.2-0.9) 10/19/24 07:51 Eos # (Auto) 0.4 10^3/uL (0.0-0.8) 10/19/24 07:51 Baso # (Auto) 0.0 10^3/uL (0.0-0.1) 10/19/24 07:51 Absolute Gran (auto) Cancelled 10/19/24 06:37 Nucleated RBC % (auto) 0.3 % 10/19/24 07:51 Nucleated RBCs # 0.0 /100WBC 10/19/24 07:51 Sodium 136 mmol/L (136-145) 10/19/24 06:37 Potassium 4.2 mmol/L (3.5-5.1) 10/19/24 06:37 Chloride 99 mmol/L (98-107) 10/19/24 06:37 Carbon Dioxide 22 mmol/L (22-29) 10/19/24 06:37 Anion Gap 19.2 (5-19) H 10/19/24 06:37 BUN 13 mg/dL (8-23) 10/19/24 06:37 Creatinine 0.8 mg/dL (0.5-0.9) 10/19/24 06:37 GFR Calculation 72.4 mL/min (90-130) L 10/19/24 06:37 Glucose 107 mg/dL (65-115) 10/19/24 06:37 Calculated Osmolality 283 mOsm/kg (285-295) L 10/19/24 06:37 Calcium 9.4 mg/dL (8.5-10.5) 10/19/24 06:37 Total Bilirubin 0.5 mg/dL (0.15-1.2) 10/19/24 06:37 AST 31 U/L (0-32) 10/19/24 06:37 ALT 26 U/L (0-33) 10/19/24 06:37 Alkaline Phosphatase 185 U/L (35-105) H 10/19/24 06:37 Total Protein 6.7 g/dL (6.6-8.7) 10/19/24 06:37 Albumin 3.5 g/dL (3.5-5.2) 10/19/24 06:37 Globulin 3.2 g/dL (1.3-4.6) 10/19/24 06:37 Vitals Last Vital Signs Temp 97.6 F 10/20/24 12:00 Pulse 85 10/20/24 12:00 Resp 14 10/20/24 12:00 BP 122/73 10/20/24 12:00 Pulse Ox 97 10/20/24 12:00 O2 Del Method Room Air 10/20/24 12:00 O2 Flow Rate 2 10/19/24 14:14 Discharge Plan Discharge Patient Disposition: Home Condition: Stable Prescriptions: New hydrocodone-acetaminophen 10-325 mg tablet 1 tab PO Q4H PRN (Reason: pain) 7 Days Qty: 42 0RF Continued gabapentin 300 mg capsule 300 mg PO TID Discontinued hydrocodone-acetaminophen 5-325 mg tablet 0.5 - 1 tab PO .Q4-6H hydrocodone-acetaminophen 10-325 mg tablet 1 tab PO Q4H Other Ambulatory Orders: DME: Walker (Order) Location: None Selected Ordered By: Odell Huertas Discharge Diet: Advance as tolerated Discharge Activity: Limit activity as instructed Patient Instructions: Opioid Safety Activity Restrictions/Additional Instructions: Thank you for [facility] for your care! The following is a list of instructions, from your provider, to follow upon your discharge to ensure you have the optimal recovery from your recent injury orsurgery. Follow-up care is a soto part of your treatment and safety. Be sure to make and go to all appointments, and call your doctor if you are having problems. If you do not already have a follow-up appointment made, call Dr. Huertas office in the next 1-3 days to make follow up appointment for 1 weeks at [phone]. It is also a good idea to know your test results and keep a list of the medicines you take. Medications will be prescribed for you at your provider's discretion. These medications are to be used as instructed; if they are taken more often that prescribed they will not be refilled early and in most cases will not be refilled at all. > When a refill is needed,you should contact [facility] 2-3 business days before your prescription runs out. Medications will NOT be refilled by [facility] providers after hours! > Many pain medications contain Tylenol (Acetaminophen). Do not consume more than 4,000 mg of Tylenol per day in total with any combination ofmedications. > Pain medications can cause constipation. Please use an over the counter stool softener as directed, while taking pain medications. Consulty our local pharmacist with questions or recommendations on stool softeners. If constipation persists, contact our office or your primary care provider. > While under our care,you are not to receive pain medications or other controlled substances from any other provider unless our office is notified and approves. Any attempts to do so will result in refusal to prescribe any further pain medications and possible dismissal from our practice. Keep dressing on until seen in clinic in 1 week. ? Showering is permitted, however we ask that you do not take a bath, sit in a whirlpool / Jacuzzi, or go swimming for 1 month. For only the first 2 days after surgery, lt wilt be necessary for you to cover your wound/dressing with plastic and tape to keep it dry. ? Walking is essential for the healing process after surgery. We wo uld like you to slowly advance your walking. This should be done on relatively flat clear ground (inside or out) or can be done on a treadmill. Remember this goal does not have to happen all at once, slowly increase your distance and duration. This can be broken into more more than one walk per day as tolerated. Patients who walk as directed after surgery rarely require Physical Therapy. In the unlikely event this issue arises your provider will direct hospital staff to make the appropriate arrangements. ? No lifting over 5 pounds {a gallon of milk) or bending/twisting until further notice. Each of these activities places an unnecessary amount of stress onto the body and can impede the delicate healing process. > Instead of bending at the waist, keep your back straight and bend at the knees. > Instead of twisting your torso, keep your back straight and turn your entire body with your feet. ? You may sleep in any position which makes you comfortable. Many p atients find comfort sleeping in a reclining chair. It is not abnormal to have difficulty sleeping for the first several weeks following your surgery. We recommend trying Benadry! or Tylenol PM as directed to help with your sleeping difficulties. Both medications are over the counter and available withoutprescription. ? NO SMOKING!!! Smoking dramatically increases the probability of developing postoperative wound infections. ? Common complaints after lumbar and/or thoracic spine surgery include, but are not limited to: numbness and/or tingling in the legs, pain around the incision and surrounding tissues, muscle spasms, or stiffness of the middle to low back. Contact our office if these symptoms persist or if an acute change occurs. ? No driving for the first 3-5days, and not while taking narcotics until seen at your follow-up appointment and cleared. There are no restrictions for riding on short trips, however if you take a longer trip, arrangements should be made to make regular stops to get out of the vehicle and stretch . ? Swelling is an unfortunate event that will take place with any surgery and is the primary source of your postoperative discomfort. While walking and regular approved activities helps control inflammation, there are additional steps you can take to minimizeswelling. > Place ice over the surgical site and surrounding tissue for twenty minutes, followed by applying a low/medium heat (heating pad) for an additional twenty minutes every 1-2 hours as needed for painrelief. > You may use of over the counter anti-inflammatory medications (Ibuprofen, Motrin, Aleve, Advil, etc) as directed on the package label. These types of medicines wm significantly reduce the amount of discomfort you experience after surgery from swelling. It should be noted that if you have and allergy to any of these medications, or a history of ulcers or kidney disease you should consult you primary care provider prior to starting these medications. Discharge Attestations Time Spent in Discharge Care*: less than 30 min Quality Metrics Clinical Quality Measures [ No reported AMI, CVA or VTE this stay] Coding Level of Care Code Acute Code for Chg Fwd Diagnoses Status post lumbar spinal fusion Z98.1
[2024-10-20 16:34] VITALS: BP 122/73; PULSE 85; RESP 14; TEMP 36.4; O2SAT 97
== END 2024-10-20 16:38 | disposition home or self-care (01) ==
LOC: ER 10-19 13:57 → MEDSURG 10-19 13:57 → OR 10-19 13:57
PROVIDERS: Admitting Provider Orthopaedic Surgery; Emergency Provider Family Medicine; Visit Provider Orthopaedic Surgery
PROC: (CPT 10140; principal; 2024-10-19 10:00)
DX: M96.840 Postprocedural hematoma of a musculoskeletal structure following a musculoskeletal system procedure (principal); Z79.899 Other long term (current) drug therapy; Z88.8 Allergy status to other drugs, medicaments and biological substances; Z98.1 Arthrodesis status
CPT/HCPCS: 10140; 36415; 80053; 85025; 93005; 96374; 97161; 99285; G0378; J0131; J0330; J0690; J1100; J1171; J1885; J2405; J2704; J3010; J7030

== ENCOUNTER → 2024-11-20 13:09 | Outpatient (BNVA) | payer MEDICAID, SELFPAY | PROVIDERS: PCP Family Medicine; Visit Provider Orthopaedic Surgery | DX: Z98.1 Arthrodesis status (principal) | CPT/HCPCS: 72100 ==

== ENCOUNTER → 2025-01-01 13:06 | Outpatient (BNVA) | payer MEDICAID, SELFPAY | PROVIDERS: PCP Family Medicine; Visit Provider Orthopaedic Surgery | DX: Z98.1 Arthrodesis status (principal) | CPT/HCPCS: 72100 ==

== ENCOUNTER 2025-03-12 14:24 | Outpatient (CLI) | payer MEDICAID, SELFPAY ==
--- NOTE | 2025-03-12 14:27 | XR_ITS ---
WS: [id number] SCREENING DEXA SCAN [facility] CLINICAL INFORMATION: VERTEBROGENIC LOW BACK PAIN COMPARISON: None. FINDINGS: The LEFT forearm bone mineral density measures 0.88. This corresponds to a T score score of 0.0 and Z score of 1.2. Left femoral neck bone mineral density measures 1.031 g/cm2. This corresponds to a T score of 0.2 and Z score of 1.3. Right femoral neck bone mineral density measures 0.983 g/cm2. This corresponds to a T score -0.2of and Z score of 0.9. Mean femoral neck bone mineral density measures 1.007 g/cm2. This corresponds to a T score of 0.0 and Z score of 1.1. XR/XR DEXA axial skeleton* [id number] IMPRESSION: Normal bone mineralization.
== END 2025-03-12 14:25 | disposition home or self-care (01) ==
LOC: RAD 14:24
PROVIDERS: PCP Family Medicine; Visit Provider Family Medicine
DX: Z13.820 Encounter for screening for osteoporosis (principal); M54.51 Vertebrogenic low back pain
CPT/HCPCS: 77080

== ENCOUNTER → 2025-04-02 13:30 | Outpatient (BNVA) | payer MEDICAID, SELFPAY | PROVIDERS: PCP Family Medicine; Visit Provider Orthopaedic Surgery | DX: Z98.1 Arthrodesis status (principal); M54.50 Low back pain, unspecified; M79.604 Pain in right leg; M79.605 Pain in left leg; M47.816 Spondylosis without myelopathy or radiculopathy, lumbar region | CPT/HCPCS: 72100 ==